=== PATIENT | female | born 1985 | race Caucasian/White ===

== ENCOUNTER 2016-03-21 07:37 | Day surgery (SDC) | payer BC ==
[~2016-03-21] VITALS: Ht 157.5 cm; Wt 52.9 kg
[~2016-03-21 07:37] MED LIST: AMO500 PO; BIOT1TAB10 PO; FOLI-49 PO; MULT1CAP20 PO
[2016-03-21] MEDS ORDERED: FIORICET PO (08:40)
[2016-03-21 08:45] VITALS: Ht 157.5 cm; Wt 52.9 kg
[2016-03-21 09:48] VITALS: BP 124/74; PULSE 94; RESP 20
[2016-03-21 10:30] VITALS: BP 104/63; PULSE 72; RESP 16
[2016-03-21] MEDS ORDERED: MIDAZOLAM 1 MG/ML 2 ML INJ ONE ×4 (10:36→10:37)
[2016-03-21] MEDS ORDERED: FENTAnyl 50 MCG/ML VIAL ONE ×2 (10:37→10:38)
[2016-03-21 11:09] VITALS: BP 110/63; PULSE 74; RESP 16
--- NOTE | 2016-03-21 15:04 | GILP ---
DATE OF PROCEDURE: 03/21/2016 PROCEDURE PERFORMED: EGD with biopsy. INDICATION: A 31-year-old female undergoing this procedure for persistent epigastric pain despite t aking PPI. The purpose is to evaluate upper GI tract and find out the cause for GI abdominal pain. The risk of the procedure, related and unrelated complications, sedative risks, alternatives discus sed and informed consent was obtained. DESCRIPTION OF PROCEDURE: The patient was brought to the GI lab, sedated with incremental doses of Versed totally received 8 mg, fentanyl 125 mg. After optimal sedation, scope was passed with much e ase into esophagus which was grossly within normal limits. Z line was at 37 cm. It was regular. T he entire esophagus was within normal limits. Stomach mucosa revealed mild gastritis. Three biopsi es obtained to rule out H. pylori infection. Duodenum was normal, both first and second part. Biop sies taken, 2 from the bulb to rule out celiac disease. Retroversion done, no growth was seen. Sco pe was straightened out and removed with good patient tolerance. There was some ____ in the fundal area. IMPRESSION: 1. Normal esophagus. 2. Z line at 37 cm and normal, regular. 3. No varicose vein. 4. Mild gastritis. 5. Duodenal biopsies to rule out celiac sprue. Otherwise it was normal. PLAN: Review histopathology. Reassure the patient. If abdominal pain persists, then will get a so nogram to make sure there are no gallstones. Dictated By: JANNETTE DURAN/NTS Conf#: [id number] DID#: [id number] CC: JANNETTE TRAN MD;*EndCC*
== END 2016-03-21 10:58 | disposition home or self-care (01) ==
LOC: GIL 07:37
PROVIDERS: ATTEND Internal Medicine Gastroenterology
DX: K29.50 Unspecified chronic gastritis without bleeding (principal)
CPT/HCPCS: 43239; 84703; J2250; J3010

== ENCOUNTER → 2016-06-20 | Outpatient (CLI) | payer BC ==
[~2016-06-20] MED LIST changes: -AMO500 PO; -BIOT1TAB10 PO; +FIORICET PO
[2016-06-20 09:10] LABS: ADD SCAN DIFF NO
[2016-06-20 09:18] LABS: BASOPHIL # 0.1 10^3/ul (0.0-0.1); EOSINOPHILS # 0.1 10^3/ul (0.0-0.5); EOSINOPHILS % 2.3 % (0.0-7.0); HEMATOCRIT 39.9 % (37.0-47.0); HEMOGLOBIN 12.6 g/dl (12.0-16.0); LYMPHOCYTES # 1.7 10^3/ul (0.8-2.9); LYMPHOCYTES % 34.7 % (15.0-51.0); MEAN CORPUSCULAR HEMOGLOBIN 28.1 pg (29.0-33.0); MEAN CORPUSCULAR HGB CONC 31.6 g/dl (32.0-37.0); MEAN CORPUSCULAR VOLUME 89.1 fl (82.0-101.0); MEAN PLATELET VOLUME 10.3 fl (7.4-10.4); MONOCYTE # 0.4 10^3/ul (0.3-0.9); MONOCYTES % 7.6 % (0.0-11.0); NEUTROPHIL # 2.6 10^3/ul (1.6-7.5); NEUTROPHILS % 54.2 % (39.0-77.0); PLATELET COUNT 266 10^3/UL (140-415); RED BLOOD COUNT 4.48 10^6/ul (4.20-5.40); RED CELL DISTRIBUTION WIDTH 14.1 % (11.5-14.5); WHITE BLOOD COUNT 4.9 10^3/ul (4.8-10.8)
[2016-06-20 09:48] LABS: ALBUMIN 4.8 g/dl (3.3-4.9)
[2016-06-20 09:49] LABS: POTASSIUM 4.6 mmol/L (3.5-5.1)
[2016-06-20 09:51] LABS: ALBUMIN/GLOBULIN RATIO 1.29; BILIRUBIN,INDIRECT 0.3 mg/dl (0-1.1); BILIRUBIN,TOTAL 0.3 mg/dl (0.2-1.3); CREATININE 0.67 mg/dl (0.44-1.00); TOTAL PROTEIN 8.5 g/dl (6.1-8.1)
[2016-06-20 09:52] LABS: CALCIUM 9.6 mg/dl (8.4-10.2); CHOL/HDL RATIO 2.4 RATIO
[2016-06-20 10:20] LABS: THYROID STIMULATING HORMONE 2.4 MIU/L (0.465-4.680)
== END | disposition home or self-care (01) ==
LOC: LAB 08:52
PROVIDERS: ATTEND Internal Medicine
DX: D64.9 Anemia, unspecified (principal); E03.9 Hypothyroidism, unspecified; E55.9 Vitamin D deficiency, unspecified
CPT/HCPCS: 80053; 80061; 82306; 84436; 84443; 85025; 85651

== ENCOUNTER → 2016-11-21 | Outpatient (CLI) | payer BC ==
[2016-11-21 09:30] LABS: BASOPHIL # 0.1 10^3/ul (0.0-0.1); BASOPHILS % 0.9 % (0.0-2.0); EOSINOPHILS # 0.1 10^3/ul (0.0-0.5); EOSINOPHILS % 1.3 % (0.0-7.0); HEMATOCRIT 40.1 % (37.0-47.0); HEMOGLOBIN 13.3 g/dl (12.0-16.0); LYMPHOCYTES # 1.9 10^3/ul (0.8-2.9); LYMPHOCYTES % 28.8 % (15.0-51.0); MEAN CORPUSCULAR HEMOGLOBIN 30.3 pg (29.0-33.0); MEAN CORPUSCULAR HGB CONC 33.2 g/dl (32.0-37.0); MEAN CORPUSCULAR VOLUME 91.3 fl (82.0-101.0); MEAN PLATELET VOLUME 10.2 fl (7.4-10.4); MONOCYTE # 0.4 10^3/ul (0.3-0.9); MONOCYTES % 6.4 % (0.0-11.0); NEUTROPHILS % 62.3 % (39.0-77.0); PLATELET COUNT 313 10^3/UL (140-415); RED BLOOD COUNT 4.39 10^6/ul (4.20-5.40); RED CELL DISTRIBUTION WIDTH 12.4 % (11.5-14.5); WHITE BLOOD COUNT 6.7 10^3/ul (4.8-10.8)
[2016-11-21 10:01] LABS: ALBUMIN 4.4 g/dl (3.3-4.9); ALBUMIN/GLOBULIN RATIO 1.29; BILIRUBIN,INDIRECT 0.1 mg/dl (0-1.1); BILIRUBIN,TOTAL 0.1 mg/dl (0.2-1.3); CALCIUM 9.5 mg/dl (8.4-10.2); CHOL/HDL RATIO 2.7 RATIO; CREATININE 0.62 mg/dl (0.44-1.00); POTASSIUM 4.5 mmol/L (3.5-5.1); TOTAL PROTEIN 7.8 g/dl (6.1-8.1)
== END | disposition home or self-care (01) ==
LOC: LAB 09:06
PROVIDERS: ATTEND Internal Medicine
DX: E78.5 Hyperlipidemia, unspecified (principal)
CPT/HCPCS: 80053; 80061; 85025; 85651

== ENCOUNTER → 2017-05-25 | Outpatient (CLI) | END | disposition home or self-care (01) ==

== ENCOUNTER → 2017-07-05 | Outpatient (CLI) | END | disposition home or self-care (01) ==

== ENCOUNTER → 2018-01-18 | Outpatient (CLI) | END | disposition home or self-care (01) ==

== ENCOUNTER → 2018-09-27 | Outpatient (CLI) | payer BC | END | disposition home or self-care (01) | LOC: LAB 07:34 | PROVIDERS: ATTEND Internal Medicine | DX: E03.9 Hypothyroidism, unspecified (principal); R73.03 Prediabetes; E78.5 Hyperlipidemia, unspecified; E55.9 Vitamin D deficiency, unspecified | CPT/HCPCS: 80053; 80061; 81001; 81003; 82306; 83036; 84436; 84443; 85025 ==